=== PATIENT | male | born 1990 | race Caucasian/White ===

== ENCOUNTER 2020-08-16 18:23 | Emergency (ER) | payer SELFPAY ==
[~2020-08-16] VITALS: Ht 175.3 cm; Wt 75.0 kg
[2020-08-16 18:30] VITALS: BP 142/92
[2020-08-16] MEDS ORDERED: CEPHALEXIN 250MG CAPSULE PO ONE (19:15)
[2020-08-16] MEDS ORDERED: CEPH500T MT (19:39)
== END 2020-08-16 19:40 | disposition home or self-care (01) ==
LOC: ER 18:23
DX: L03.115 Cellulitis of right lower limb (principal)
CPT/HCPCS: 99283

== ENCOUNTER 2021-09-04 21:40 | Emergency (ER) | payer OTHER ==
[~2021-09-04] VITALS: Ht 177.8 cm; Wt 89.0 kg
[~2021-09-04 21:40] MED LIST: CEPH500T MT
[2021-09-04 22:18] VITALS: BP 121/70
== END 2021-09-04 23:00 | disposition left against medical advice (07) ==
LOC: ER 21:40
DX: Z53.21 Procedure and treatment not carried out due to patient leaving prior to being seen by health care provider (principal)
CPT/HCPCS: 82962